=== PATIENT | male | born 1990 | race Caucasian/White ===

== ENCOUNTER 2023-11-01 17:18 | Emergency (ER) | payer SELFPAY ==
[~2023-11-01] VITALS: Ht 162.6 cm; Wt 75.0 kg
[2023-11-01 17:21] VITALS: BP 145/91; PULSE 60; RESP 18; TEMP 98.2
[2023-11-01] MEDS: AMOXICILLIN TRIHYDRATE 250 MG CAPSULE PO ONE (19:51)
[2023-11-01] MEDS ORDERED: AMOX250C4 PO (19:52)
[2023-11-01] MEDS: KETOROLAC TROMETHAMINE 30 MG/ML VIAL IM ONE (19:52)
== END 2023-11-01 20:09 | disposition home or self-care (01) ==
LOC: EMS 17:25
DX: S01.511A Laceration without foreign body of lip, initial encounter (principal); F12.90 Cannabis use, unspecified, uncomplicated; X58.XXXA Exposure to other specified factors, initial encounter; Y93.89 Activity, other specified; Y92.89 Other specified places as the place of occurrence of the external cause; Y99.8 Other external cause status
CPT/HCPCS: 99283; 96372; J1885

== ENCOUNTER 2023-11-05 21:04 | Emergency (ER) | payer SELFPAY ==
[~2023-11-05] VITALS: Ht 162.6 cm; Wt 75.9 kg
[~2023-11-05 21:04] MED LIST: AMOX250C4 PO
[2023-11-05 21:10] VITALS: BP 148/74; PULSE 66; RESP 16; TEMP 98.1
== END 2023-11-05 21:21 | disposition still patient (30) ==
LOC: EMS 21:04
DX: S01.511D Laceration without foreign body of lip, subsequent encounter (principal); Z53.21 Procedure and treatment not carried out due to patient leaving prior to being seen by health care provider; X58.XXXD Exposure to other specified factors, subsequent encounter

== ENCOUNTER 2025-04-25 16:17 | Emergency (ER) | payer MEDICAID ==
[~2025-04-25] VITALS: Ht 162.6 cm; Wt 65.9 kg
[2025-04-25 16:25] VITALS: BP 137/93; PULSE 92; RESP 18; TEMP 98.4; O2SAT 99
== END 2025-04-25 19:07 | disposition left against medical advice (07) ==
LOC: EMS 16:17
DX: M79.671 Pain in right foot (principal); M79.672 Pain in left foot; Z53.21 Procedure and treatment not carried out due to patient leaving prior to being seen by health care provider
CPT/HCPCS: 99281; Z7502

== ENCOUNTER 2025-04-25 20:39 | Emergency (ER) | payer MEDICAID ==
[~2025-04-25] VITALS: Ht 162.6 cm; Wt 69.1 kg
[2025-04-25 20:59] VITALS: BP 144/105; PULSE 112; RESP 18; TEMP 98.8; O2SAT 100
== END 2025-04-26 00:30 | disposition left against medical advice (07) ==
LOC: EMS 20:39
DX: M79.671 Pain in right foot (principal); M79.672 Pain in left foot; Z53.21 Procedure and treatment not carried out due to patient leaving prior to being seen by health care provider
CPT/HCPCS: 99281; Z7502